=== PATIENT | female | born 1955 | race Caucasian/White ===

== ENCOUNTER 2020-01-17 10:38 | Emergency (ER) | payer OTHER ==
--- NOTE | 2020-01-17 11:09 | EDM.PDOC ---
ED HPI GENERAL MEDICAL PROBLEM - General Chief Complaint: Cardiovascular Problem Stated Complaint: AFIB NEW ONSET BROUGHT FROM SURGERY Time Seen by Provider: 01/17/20 10:42 Source of Information: Reports: Patient, RN Notes Reviewed - History of Present Illness INITIAL COMMENTS - FREE TEXT/NARRATIVE: 64 yr old female sent over from OR found to be in a fib with RVR. She was scheduled for endoscopy. She has had episodes of palpitations off and on the past 2 yrs but she thinks they have been mostly brief. However she was not aware of being in a fib this morning and no prior dx of that. No cough, fever, chst pain or difficulty breathing. - Related Data Allergies Allergy/AdvReac Type Severity Reaction Status Date / Time Iodinated Contrast Media Allergy Difficulty Verified 01/17/20 09:16 [Iodinated Contrast Media - Breathing IV Dye] Sulfa (Sulfonamide Allergy Hives Verified 01/17/20 09:16 Antibiotics) Home Meds: Home Meds Famotidine [Pepcid] 20 mg PO DAILY 06/01/14 [History] Lactobacillus Combo No.10 [Probiotic] 1 tab .ROUTE DAILY 06/01/14 [History] Acetaminophen/Codeine [Tylenol with Codeine No.3 300MG/30MG] 1 - 2 tab PO Q6HR PRN 06/04/14 [History] Acetaminophen [Tylenol] 650 mg PO Q4H PRN 01/16/20 [History] Ascorbate Calcium [Vitamin C] 1,000 mg PO DAILY 01/16/20 [History] Calcium Carb/Vitamin D3/Vit K1 [Calcium + D Soft Chewable Tab] 1 tab PO DAILY 01/16/20 [History] Cetirizine [ZyrTEC] 10 mg PO DAILY PRN 01/16/20 [History] Fluticasone Propionate [Flonase] 1 dose NASBOTH DAILY 01/16/20 [History] Ketotifen [Ketotifen 0.025% Ophth Soln] 1 dose EYEBOTH ASDIRECTED PRN 01/16/20 [History] Lutein/Zeaxanthin [Lutein-Zeaxanthin 20-1 mg Sfgl] 1 cap PO DAILY 01/16/20 [History] Lysine 500 mg PO QAM 01/16/20 [History] Magnesium Oxide 250 mg PO DAILY 01/16/20 [History] Ubidecarenone [Coq-10] 100 mg PO DAILY 01/16/20 [History] allopurinoL [Zyloprim] 150 mg PO DAILY 01/16/20 [History] hydroCHLOROthiazide [Hydrochlorothiazide] 25 mg PO DAILY 01/16/20 [History] lisinopriL [Lisinopril] 5 mg PO DAILY 01/16/20 [History] Diltiazem [Diltiazem SR] 120 mg PO DAILY #30 cap.er 01/17/20 [Rx] Past Medical History HEENT History: Reports: Allergic Rhinitis, Impaired Vision, Other (See Below) Other HEENT History: wears glasses Cardiovascular History: Reports: Hypertension Other Respiratory History: undiagnosed sleep apnea per patient report Gastrointestinal History: Reports: Colon Polyp, Other (See Below) Other Gastrointestinal History: eosinophilic esophagitis Genitourinary History: Reports: Other (See Below) Other Genitourinary History: uric acid nephrolithiasis Musculoskeletal History: Reports: Other (See Below) Other Musculoskeletal History: knee pain Neurological History: Reports: Migraines Psychiatric History: Reports: None Endocrine/Metabolic History: Reports: Obesity/BMI 30+ Hematologic History: Reports: None Immunologic History: Reports: None Oncologic (Cancer) History: Reports: None Dermatologic History: Reports: None - Infectious Disease History Infectious Disease History: Reports: None - Past Surgical History Head Surgeries/Procedures: Reports: None HEENT Surgical History: Reports: None Cardiovascular Surgical History: Reports: None Respiratory Surgical History: Reports: None GI Surgical History: Reports: Colonoscopy, EGD Female Surgical History: Reports: Lithotripsy/ESWL Endocrine Surgical History: Reports: None Neurological Surgical History: Reports: None Oncologic Surgical History: Reports: None Dermatological Surgical History: Reports: None Social & Family History - Tobacco Use Smoking Status *Q: Never Smoker - Caffeine Use Caffeine Use: Reports: Soda - Recreational Drug Use Recreational Drug Use: No ED ROS GENERAL - Review of Systems Review Of Systems: See Below Constitutional: Denies: Fever, Chills, Diaphoresis HEENT: Reports: No Symptoms Respiratory: Denies: Shortness of Breath Cardiovascular: Denies: Chest Pain, Lightheadedness, Palpitations GI/Abdominal: Denies: Abdominal Pain, Nausea, Vomiting Musculoskeletal: Reports: No Symptoms Skin: Reports: No Symptoms Neurological: Denies: Dizziness, Numbness, Tingling, Trouble Speaking, Difficulty Walking, Weakness ED EXAM, GENERAL - Physical Exam Exam: See Below General Appearance: Alert, No Apparent Distress Head: Atraumatic Neck: Supple, Full Range of Motion Respiratory/Chest: No Respiratory Distress, Lungs Clear, Normal Breath Sounds Cardiovascular: Tachycardia, Irregularly Irregular GI/Abdominal: Soft, Non-Tender Back Exam: No: CVA Tenderness (L), CVA Tenderness (R) Extremities: Normal Inspection, Normal Range of Motion. No: Pedal Edema, Leg Pain Neurological: Alert, Oriented, No Motor/Sensory Deficits Skin Exam: Warm, Dry, Normal Color, No Rash Course - Vital Signs Last Recorded V/S: Last Vital Signs Temp 98.1 F 01/17/20 10:44 Pulse 141 H 01/17/20 10:44 Resp 21 H 01/17/20 10:44 BP 147/95 H 01/17/20 10:44 Pulse Ox 93 L 01/17/20 10:44 - Orders/Labs/Meds Labs: Laboratory Tests 01/17/20 01/17/20 01/17/20 Range/Units 11:33 11:33 11:33 WBC 6.65 (3.98-10.04) K/mm3 RBC 5.07 (3.98-5.22) M/mm3 Hgb 14.6 (11.2-15.7) gm/dl Hct 44.2 (34.1-44.9) % MCV 87.2 (79.4-94.8) fl MCH 28.8 (25.6-32.2) pg MCHC 33.0 (32.2-35.5) g/dl RDW Std Deviation 43.2 (36.4-46.3) fL Plt Count 261 (182-369) K/mm3 MPV 10.0 (9.4-12.3) fl Neut % (Auto) 64.3 (34.0-71.1) % Lymph % (Auto) 26.0 (19.3-51.7) % [place] % (Auto) 7.5 (4.7-12.5) % Eos % (Auto) 1.7 (0.7-5.8) Baso % (Auto) 0.3 (0.1-1.2) % Neut # (Auto) 4.28 (1.56-6.13) K/mm3 Lymph # (Auto) 1.73 (1.18-3.74) K/mm3 [place] # (Auto) 0.50 H (0.24-0.36) K/mm3 Eos # (Auto) 0.11 (0.04-0.36) K/mm3 Baso # (Auto) 0.02 (0.01-0.08) K/mm3 PT 10.9 (9.7-12.0) SECONDS INR 1.02 Sodium 142 (136-145) mEq/L Potassium 3.2 L (3.5-5.1) mEq/L Chloride 104 (98-107) mEq/L Carbon Dioxide 27 (21-32) mEq/L Anion Gap 14.2 (5-15) BUN 11 (7-18) mg/dL Creatinine 0.7 (0.55-1.02) mg/dL Est Cr Clr Drug Dosing TNP Estimated GFR (MDRD) > 60 (>60) mL/min BUN/Creatinine Ratio 15.7 (14-18) Glucose 113 (80-115) mg/dL Calcium 8.9 (8.5-10.1) mg/dL Total Bilirubin 0.8 (0.2-1.0) mg/dL AST 17 (15-37) U/L ALT 23 (14-59) U/L Alkaline Phosphatase 67 (46-116) U/L Total Protein 7.1 (6.4-8.2) g/dl Albumin 3.4 (3.4-5.0) g/dl Globulin 3.7 gm/dL Albumin/Globulin Ratio 0.9 L (1-2) Meds: Medications Discontinued Medications Generic Name Dose Route Start Last Admin Trade Name Laithq PRN Reason Stop Dose Admin Diltiazem HCl 20 mg 01/17/20 11:15 01/17/20 11:23 Cardizem IVPUSH 01/17/20 11:16 20 mg ONETIME ONE Administration Diltiazem HCl 60 mg 01/17/20 13:10 01/17/20 13:18 Cardizem PO 01/17/20 13:11 60 mg ONETIME ONE Administration - Re-Assessments/Exams Free Text/Narrative Re-Assessment/Exam: 01/20/20 13:53 Pt did slow down to 90 after diltiazam 20 mg IV. Did give a dosage of 80 mg oral. She remains asymptomatic, did not convert in ED. Looks safe to go home or oral cardizem. Discharge instr. as documented. Departure - Departure Time of Disposition: 14:25 Disposition: Home, Self-Care 01 Condition: Fair Clinical Impression: Atrial fibrillation with RVR Prescriptions: Diltiazem [Diltiazem SR] 120 mg PO DAILY #30 cap.er Instructions: Atrial Fibrillation, [id number] Referrals: Lima Goldstein PASTORAL WORKER [Primary Care Provider] - Forms: ED Department Discharge Additional Instructions: Continue the lisinopril at current dosage, reduce you HCLthiazide to 1/2 current dose daily. Cardizem 120 mg once daily with one dose this evening and than take that q AM, once daily. Prescription has been sent to [facility] at the [facility]. Follow up with Ever at the clinic Wednesday if possible, otherwise first available appt. next week. Get a BP cuff, check you BP 2 or 3 times daily. Keep a log of BP and heart rate, bring that info to clinic with you for your follow up appointment. Aspirin 324 or 325 mg daily for now. If you stay in a fib for more than a few days you should start on a stronger blood thinner to cover clotting and stroke risk as discussed. Return to ED as needed. Sepsis Event Note (ED) - Evaluation Sepsis Screening Result: No Definite Risk
[2020-01-17] MEDS ORDERED: Diltiazem 50 MG/10 ML SDV IVPUSH ONE (11:15)
--- NOTE | 2020-01-17 12:10 | CR ---
Chest: Portable view of the chest was obtained. Comparison: No prior chest imaging. Heart size is normal. Slightly tortuous thoracic aorta is noted. Mild atelectasis is noted within the left lung base. Incidental azygos lobe is noted within the upper right lung. No acute parenchymal change is seen within either lung. Bony structures shows minimal scoliosis within the spine. Impression: 1. Findings as described above. 2. Nothing acute is appreciated. Diagnostic code #2 This report was dictated in MDT
[2020-01-17] MEDS ORDERED: Diltiazem IR 60 MG Tab PO ONE (13:10)
== END 2020-01-17 15:01 | disposition home or self-care (01) ==
LOC: JD.ED 10:38
DX: I48.91 Unspecified atrial fibrillation (principal); I10 Essential (primary) hypertension; E66.9 Obesity, unspecified; Z88.2 Allergy status to sulfonamides; Z91.041 Radiographic dye allergy status; Z79.899 Other long term (current) drug therapy
CPT/HCPCS: 36415; 71045; 80053; 85025; 85610; 96374; 99285; A9270; J3490; 99283

== ENCOUNTER → 2020-01-17 | Day surgery (SDC) | payer BC, OTHER ==
--- NOTE | 2020-01-16 08:13 | PCM.PREANE ---
Preanesthetic Assessment - Procedure Proposed Procedure: EGD and Colonoscopy - Anesthesia/Transfusion/Family Hx Anesthesia History: Prior Anesthesia Reaction Type of Anesthesia Reaction: Excessive Nausea/Vomiting Family History of Anesthesia Reaction: No Transfusion History: No Prior Transfusion(s) Intubation History: Unknown - Review of Systems General: No Symptoms (morbid obesity) Pulmonary: No Symptoms (Some breathing issues due to seasonal allergies), Cough (post nasal drip cough) Cardiovascular: No Symptoms (HTN), Dyspnea on Exertion, Lightheadedness (positional changes) Gastrointestinal: No Symptoms (GERD-controlled) Neurological: Headache (Migraines) Other: Reports: Sinus Problem (seasonal allergies), Anxiety - Physical Assessment NPO Status Date: 01/16/20 NPO Status Time: 23:30 Vital Signs: HR:88 Sat:95% Temp:97 B/P: 150/55 Resp:16 Height: 1.57 m Weight: 107 kg ASA Class: 2 Mental Status: Alert & Oriented x3 Airway Class: Mallampati = 2 Dentition: Reports: Normal Dentition, [place](s), Caries Thyro-Mental Finger Breadths: 3 Mouth Opening Finger Breadths: 3 ROM/Head Extension: Full Lungs: Clear to Auscultation, Normal Respiratory Effort Cardiovascular: Regular Rate, Regular Rhythm, No Murmurs - Lab Values: All labs reviewed and noted and within acceptable ranges to proceed with scheduled procedure. - Allergies Allergies/Adverse Reactions: Allergies Allergy/AdvReac Type Severity Reaction Status Date / Time Iodinated Contrast Media Allergy Difficulty Verified 01/16/20 16:21 [Iodinated Contrast Media - Breathing IV Dye] Sulfa (Sulfonamide Allergy Hives Verified 01/16/20 16:21 Antibiotics) - Anesthesia Plan Pre-Op Medication Ordered: None - Acknowledgements Anesthesia Type Planned: MAC Pt an Appropriate Candidate for the Planned Anesthesia: Yes Alternatives and Risks of Anesthesia Discussed w Pt/Guardian: Yes Pt/Guardian Understands and Agrees with Anesthesia Plan: Yes PreAnesthesia Questionnaire - HOME MEDS Home Medications: Home Meds Famotidine [Pepcid] 20 mg PO DAILY 06/01/14 [History] Lactobacillus Combo No.10 [Probiotic] 1 tab .ROUTE DAILY 06/01/14 [History] Acetaminophen/Codeine [Tylenol with Codeine No.3 300MG/30MG] 1 - 2 tab PO Q6HR PRN 12/29/14 [History] Acetaminophen [Tylenol] 650 mg PO Q4H PRN 01/16/20 [History] Ascorbate Calcium [Vitamin C] 1,000 mg PO DAILY 01/16/20 [History] Calcium Carb/Vitamin D3/Vit K1 [Calcium + D Soft Chewable Tab] 1 tab PO DAILY 01/16/20 [History] Cetirizine [ZyrTEC] 10 mg PO DAILY PRN 01/16/20 [History] Fluticasone Propionate [Flonase] 1 dose NASBOTH DAILY 01/16/20 [History] Ketotifen [Ketotifen 0.025% Ophth Soln] 1 dose EYEBOTH ASDIRECTED PRN 01/16/20 [History] Lutein/Zeaxanthin [Lutein-Zeaxanthin 20-1 mg Sfgl] 1 cap PO DAILY 01/16/20 [History] Lysine 500 mg PO QAM 01/16/20 [History] Magnesium Oxide 250 mg PO DAILY 01/16/20 [History] Ubidecarenone [Coq-10] 100 mg PO DAILY 01/16/20 [History] allopurinoL [Zyloprim] 150 mg PO DAILY 01/16/20 [History] hydroCHLOROthiazide [Hydrochlorothiazide] 25 mg PO DAILY 01/16/20 [History] lisinopriL [Lisinopril] 5 mg PO DAILY 01/16/20 [History] - CURRENT (IN HOUSE) MEDS Current Meds: Current Medications Lactated Ringer's (Ringers, Lactated) 1,000 mls @ 125 mls/hr IV ASDIRECTED DARYN Stop: 01/17/20 23:00 Lidocaine/Sodium Bicarbonate (Buffered Lidocaine 1% In Ns 8.4%) 0.25 ml IDERM ONETIME PRN PRN Reason: Prior to IV Start Stop: 01/17/20 18:00 Sodium Chloride (Saline Flush) 10 ml FLUSH ASDIRECTED PRN PRN Reason: Keep Vein Open Stop: 01/17/20 18:00
[~2020-01-17] MED LIST: Albuterol 0.083% 2.5 MG/3 ML Neb Soln NEB PRN; Lactated Ringers 1,000 ML IV SCH; Lidocaine 1% 0 ML ONE; Lidocaine 1%/Sod Bicarbonate in NS 8.4% 1 ML Syringe IDERM PRN; Ondansetron 4 MG/2 ML SDV ONE; Propofol 200 MG/20 ML SDV ONE; Sodium Chloride 0.9% 10 ML Syringe FLUSH PRN; fentaNYL 100 MCG/2 ML SDV ONE
--- NOTE | 2020-01-17 10:28 | PCM.SN.2 ---
- Free Text/Narrative Note: Anesthesia Note: Patient presents today to same day surgery center for a EGD and colonoscopy to be performed by Dr. Roca. Patient admitted and prepped for scopes in a standard fashion. Patient placed in LLD position, monitors/alarms on, O2 placed at 2 LPM nasal cannula, and 50 mcg of fentanyl given at 09:33 along with zofran 4mg IV. Patient resting quietly and awaiting to be taken back to OR, when SIDE SEAM ENVELOPE MACHINE OPERATOR noted an elevated HR in the 120's. Patient at this time denied any chest pain, SOB, but did state that she feels heart beating faster. EKG ordered and reviewed by CODIE and Dr. 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 Opal MACKAY reviewed case with Dr. Combs, and Alfa RN, report given, and ER graciously accepted current care of patient. Patient was updated and educated by both Dr. Kerns and Opal MACKAY, with next plan of action. EGD/Colonoscopy currently cancelled and will by rescheduled when patient's cardiovascular status is stabilized. Patient transported to ER via cart to Exam Room #3. Thank you! Opal MACKAY
--- NOTE | 2020-01-17 10:28 | PCM.SN.2 ---
- Free Text/Narrative Note: The patient presented for her procedures today and was found to have HR 120- 140's. EKG was done and read by the ED physician with findings of atrial fibrillation. The procedures were cancelled and the patient was transferred to the ER for continued workup. Kailey Roca MD General surgery
== END | disposition home or self-care (01) ==
LOC: JD.SDS 08:32
PROVIDERS: ATTEND Surgery
DX: R11.2 Nausea with vomiting, unspecified (principal); I48.91 Unspecified atrial fibrillation; I10 Essential (primary) hypertension; Z88.2 Allergy status to sulfonamides; Z91.041 Radiographic dye allergy status; Z79.899 Other long term (current) drug therapy; Z53.09 Procedure and treatment not carried out because of other contraindication; Z11.59 Encounter for screening for other viral diseases
CPT/HCPCS: 87635; 93005; J2405; J3010; J7120; J2001; J2704; U0002

== ENCOUNTER 2021-01-08 09:59 | Day surgery (SDC) | payer OTHER ==
[~2021-01-08 09:59] MED LIST changes: -Albuterol 0.083% 2.5 MG/3 ML Neb Soln NEB PRN; -Lidocaine 1% 0 ML ONE; -Ondansetron 4 MG/2 ML SDV ONE; -Propofol 200 MG/20 ML SDV ONE; -fentaNYL 100 MCG/2 ML SDV ONE
[2021-01-08] MEDS ORDERED: Propofol 200 MG/20 ML SDV ONE ×2 (10:30→11:31)
[2021-01-08] MEDS ORDERED: Midazolam 1 MG/ML 2 ML SDV ONE (10:31)
[2021-01-08] MEDS ORDERED: fentaNYL 100 MCG/2 ML SDV ONE (10:31)
[2021-01-08] MEDS ORDERED: Lidocaine 1% 6 ML ONE (10:31)
--- NOTE | 2021-01-08 10:39 | PCM.PREANE ---
Preanesthetic Assessment - Procedure Proposed Procedure: EGD and Colonoscopy - Anesthesia/Transfusion/Family Hx Anesthesia History: Prior Anesthesia Reaction Transfusion History: No Prior Transfusion(s) Intubation History: Unknown - Review of Systems General: No Symptoms Pulmonary: No Symptoms, Other (hx nocturnal hypoxemia) Cardiovascular: No Symptoms Gastrointestinal: No Symptoms Neurological: No Symptoms Other: Reports: None - Physical Assessment NPO Status Date: 01/07/21 NPO Status Time: 21:00 Vital Signs: Last Vital Signs Temp 97.6 F 01/08/21 10:10 Pulse 78 01/08/21 10:10 Resp 16 01/08/21 10:10 BP 139/83 01/08/21 10:10 Pulse Ox 97 01/08/21 10:10 ASA Class: 3 Mental Status: Alert & Oriented x3 Airway Class: Mallampati = 3 Dentition: Reports: Normal Dentition Thyro-Mental Finger Breadths: 3 Mouth Opening Finger Breadths: 3 ROM/Head Extension: Full Lungs: Clear to Auscultation, Normal Respiratory Effort Cardiovascular: Regular Rate, Regular Rhythm - Allergies Allergies/Adverse Reactions: Allergies Allergy/AdvReac Type Severity Reaction Status Date / Time Iodinated Contrast Media Allergy Difficulty Verified 01/07/21 14:02 [Iodinated Contrast Media - Breathing IV Dye] Sulfa (Sulfonamide Allergy Hives Verified 01/07/21 14:02 Antibiotics) - Acknowledgements Anesthesia Type Planned: MAC Pt an Appropriate Candidate for the Planned Anesthesia: Yes Alternatives and Risks of Anesthesia Discussed w Pt/Guardian: Yes Pt/Guardian Understands and Agrees with Anesthesia Plan: Yes PreAnesthesia Questionnaire HEENT History: Reports: Allergic Rhinitis, Impaired Vision, Other (See Below) Other HEENT History: wears glasses Cardiovascular History: Reports: Afib, Hypertension Other Respiratory History: undiagnosed sleep apnea per patient report Gastrointestinal History: Reports: Colon Polyp, Other (See Below) Other Gastrointestinal History: eosinophilic esophagitis, heartburn Genitourinary History: Reports: Other (See Below) Other Genitourinary History: uric acid nephrolithiasis PEDIATRIC MEDICAL ASSISTANT History: Reports: None Musculoskeletal History: Reports: Other (See Below) Other Musculoskeletal History: knee pain Neurological History: Reports: Migraines Psychiatric History: Reports: None Endocrine/Metabolic History: Reports: Obesity/BMI 30+ Hematologic History: Reports: None Immunologic History: Reports: None Oncologic (Cancer) History: Reports: None Dermatologic History: Reports: None - Infectious Disease History Infectious Disease History: Reports: None - Past Surgical History Head Surgeries/Procedures: Reports: None HEENT Surgical History: Reports: None Cardiovascular Surgical History: Reports: None Respiratory Surgical History: Reports: None GI Surgical History: Reports: Colonoscopy, EGD Female Surgical History: Reports: Lithotripsy/ESWL Male Surgical History: Reports: None Endocrine Surgical History: Reports: None Neurological Surgical History: Reports: None Musculoskeletal Surgical History: Reports: None Oncologic Surgical History: Reports: None Dermatological Surgical History: Reports: None - SUBSTANCE USE Tobacco Use Status *Q: Never Tobacco User Recreational Drug Use History: No - HOME MEDS Home Medications: Home Meds Famotidine [Pepcid] 20 mg PO DAILY 06/01/14 [History] Lactobacillus Combo No.10 [Probiotic] 1 tab .ROUTE DAILY 06/01/14 [History] Acetaminophen/Codeine [Tylenol with Codeine No.3 300MG/30MG] 1 - 2 tab PO Q6HR PRN 06/04/14 [History] Acetaminophen [Tylenol] 650 mg PO Q4H PRN 01/16/20 [History] Ascorbate Calcium [Vitamin C] 1,000 mg PO DAILY 01/16/20 [History] Calcium Carb/Vitamin D3/Vit K1 [Calcium + D Soft Chewable Tab] 1 tab PO DAILY 01/16/20 [History] Cetirizine [ZyrTEC] 10 mg PO DAILY PRN 01/16/20 [History] Fluticasone Propionate [Flonase] 1 dose NASBOTH DAILY 01/16/20 [History] Ketotifen [Ketotifen 0.025% Oph Soln] 1 dose EYEBOTH ASDIRECTED PRN 01/16/20 [History] Lutein/Zeaxanthin [Lutein-Zeaxanthin 20-1 mg Sfgl] 1 cap PO DAILY 01/16/20 [History] Ubidecarenone [Coq-10] 100 mg PO DAILY 01/16/20 [History] allopurinoL [Zyloprim] 150 mg PO DAILY 01/16/20 [History] hydroCHLOROthiazide [Hydrochlorothiazide] 12.5 mg PO DAILY 01/16/20 [History] lisinopriL [Lisinopril] 5 mg PO DAILY 01/16/20 [History] Diltiazem [Diltiazem SR] 120 mg PO DAILY #30 cap.er 01/17/20 [Rx] Aspirin 81 mg PO DAILY 01/07/21 [History] Multivitamin 1 tab PO DAILY 01/07/21 [History] Rosuvastatin [Crestor] 10 mg PO DAILY 01/07/21 [History] - CURRENT (IN HOUSE) MEDS Current Meds: Current Medications Lactated Ringer's (Ringers, Lactated) 1,000 mls @ 125 mls/hr IV ASDIRECTED DARYN Stop: 01/08/21 23:00 Lidocaine/Sodium Bicarbonate (Lidocaine 1%/Sod Bicarbonate In Ns 8.4% 1 Ml Syringe) 0.25 ml IDERM ONETIME PRN PRN Reason: Prior to IV Start Stop: 01/08/21 18:00 Sodium Chloride (Sodium Chloride 0.9% 10 Ml Syringe) 10 ml FLUSH ASDIRECTED PRN PRN Reason: Keep Vein Open Stop: 01/08/21 18:00 Discontinued Medications Fentanyl (Fentanyl 100 Mcg/2 Ml Sdv) Confirm Administered Dose 100 mcg .ROUTE .STK-MED ONE Stop: 01/08/21 10:32 Lidocaine HCl (Xylocaine-Mpf 1%) Confirm Administered Dose 6 mls @ as directed .ROUTE .STK-MED ONE Stop: 01/08/21 10:32 Midazolam HCl (Midazolam 1 Mg/Ml 2 Ml Sdv) Confirm Administered Dose 2 mg .ROUTE .STK-MED ONE Stop: 01/08/21 10:32 Propofol (Propofol 200 Mg/20 Ml Sdv) Confirm Administered Dose 400 mg .ROUTE .STK-MED ONE Stop: 01/08/21 10:31
--- NOTE | 2021-01-08 12:12 | PCM.OPNOTE ---
- General Post-Op/Procedure Note Date of Surgery/Procedure: 01/08/21 Operative Procedure(s): EGD and colonoscopy Findings: 1. Irregular Z-line 2. Hiatal hernia 3. Bile reflux 4. Gastritis 5. Duodenal polyp 6. Diverticulosis 7. Descending colitis 8. Abnormal rectal mucosa Pre Op Diagnosis: History of eosiniphilic esophagitis, reflux, history of colon polyps Post-Op Diagnosis: same Anesthesia Technique: MAC Primary Surgeon: Kailey Roca Anesthesia Provider: Tom Johnson Pathology: 1. Z-line biopsies 2. gastric antrum biopsies 3. Duodenal polyp 4. Descending colon biopsy 5. Rectal biopsy Fluid Replacement, Intraop: 1,000 Output, Urine Amount: 0 EBL in mLs: 0 Complications: none apparent Condition: Good
--- NOTE | 2021-01-08 12:14 | PCM.PRNOTE ---
- Free Text/Narrative Note: Operative Report Date of Procedure: January 08, 2021 Pre Op Diagnosis: history of eosinophilic esophagitis, reflux, history of colon polyps Post-Op Diagnosis: same Operative Procedures: 1. EGD with biopsy 2. Colonoscopy to the cecum with biopsy Primary Surgeon: Kailey Roca MD Anesthesia Provider: Tom Johnson CRNA Anesthesia Technique: MAC IV Fluid Replacement, Intraop: 1000cc crystalloid Output, Urine Amount: 0cc EBL in mLs: 0cc Findings: 1. Irregular Z-line 2. Hiatal hernia 3. Bile reflux 4. Gastritis 5. Duodenal polyp 6. Diverticulosis 7. Descending colitis 8. Abnormal rectal mucosa Specimens: 1. Z-line biopsies 2. gastric antrum biopsies 3. Duodenal polyp 4. Descending colon biopsy 5. Rectal biopsy Drain/Tubes: None Indication: The patient is a 65-year-old lady who presented to the clinic with history of eosinophilic esophagitis and reflux, currently managed on anti-reflux m edication. She has a history of colon polyps. She was originally scheduled to have EGD and colonoscopy one year ago, but was delayed due to cardiac issues and COVID. The patient was consented for an EGD and colonoscopy. Risks of bleeding, and perforation were discussed, and the patient agreed to the risks and wished to proceed. Description of the procedure: The patient was taken back to the endoscopy suite, and placed in the left lateral decubitus position. A bite block was placed. The patient was sedated with MAC anesthesia. The Olympus video endoscope was inserted into the oropharynx and guided under direct vision into the esophagus, stomach, and duodenum. The duodenal bulb had a 2mm polyp removed with a cold biopsy forceps, and the second portion of the duodenum was unremarkable. The gastric antrum was inspected and cold biopsy forceps were used to take tissue samples for H. pylori. There was patchy erythema in this area consistent with gastritis. The scope was withdrawn to the stomach and retroflexed. There was a moderate amount of bilious fluid pooling in the stomach. No erosions or ulcers were noted. The scope was withdrawn to the esophagus. A this point we noted a small sliding hiatal hernia. No Barretts esophagus changes were noted. The Z-line was irregular and biopsied in four quadrants with a cold biopsy forceps. The endoscope was then withdrawn. Next, anorectal examination was performed. No lesions, masses or hemorrhoids were noted externally or on palpation. The scope was placed into the rectum and advanced to cecum. Upon reaching the cecum, and the patients cecum was entered. There was mild tortuosity of the colon. The ileocecal valve was well visualized and the appendiceal orifice identified. At this point, the scope was slowly withdrawn, paying attention to the mucosa. The patient had good bowel prep. Diverticulosis was noted in the descending and sigmoid colon with a 4mm patch of colitis changes noted in the descending colon near a diverticula. This was biopsied with a cold biposy forceps. A 1-2mm white patch was seen in the rectum, and biopsied with a cold biopsy forceps. In the rectum, scope was retroflexed and some hemorrhoidal tissue was noted. The scope was placed back in the lumen and excess air was aspirated. The scope was removed. The patient tolerated the procedure very well. Complications: None apparent Condition: The patient was transported to PACU in stable condition. Kailey Roca MD General Surgery
--- NOTE | 2021-01-08 15:04 | PCM48HPAN ---
Post Anesthesia Note - EVALUATION WITHIN 48HRS OF ANESTHETIC Vital Signs in Normal Range: Yes Patient Participated in Evaluation: Yes Respiratory Function Stable: Yes Airway Patent: Yes Cardiovascular Function Stable: Yes Hydration Status Stable: Yes Pain Control Satisfactory: Yes Nausea and Vomiting Control Satisfactory: Yes Mental Status Recovered: Yes Vital Signs: Last Vital Signs Temp 98.2 F 01/08/21 12:45 Pulse 67 01/08/21 12:45 Resp 16 01/08/21 12:45 BP 127/77 01/08/21 12:45 Pulse Ox 96 01/08/21 12:45
== END 2021-01-08 13:10 | disposition home or self-care (01) ==
LOC: JD.SDS 09:59
PROVIDERS: ATTEND Surgery
DX: K29.50 Unspecified chronic gastritis without bleeding (principal); K21.00 Gastro-esophageal reflux disease with esophagitis, without bleeding; K29.80 Duodenitis without bleeding; K44.9 Diaphragmatic hernia without obstruction or gangrene; K57.30 Diverticulosis of large intestine without perforation or abscess without bleeding; K64.9 Unspecified hemorrhoids; K52.9 Noninfective gastroenteritis and colitis, unspecified; K22.8 Other specified diseases of esophagus; K62.89 Other specified diseases of anus and rectum; K63.89 Other specified diseases of intestine; B96.81 Helicobacter pylori [H. pylori] as the cause of diseases classified elsewhere; I10 Essential (primary) hypertension; Z88.2 Allergy status to sulfonamides; Z91.041 Radiographic dye allergy status; Z87.19 Personal history of other diseases of the digestive system; Z86.010 Personal history of colon polyps
CPT/HCPCS: 00813; J2250; J2704; J3010; J7120